=== PATIENT | female | born 1990 | race Caucasian/White ===

== ENCOUNTER 2020-10-04 07:01 | Day surgery (SDC) | payer BC ==
[~2020-10-04] VITALS: Ht 172.7 cm; Wt 82.0 kg
[~2020-10-04 07:01] MED LIST: PRENATAL MULTI1 EAC3 PO
--- NOTE | 2020-10-04 11:30 | NUR ---
10/04/20 1130 Coby Sandoval 1118 PT ARRIVED IN PACU NON RESPONSIVE TO NOXIOUS STIMULI WITH CHIN LIFT HELD BY CEMENT PATCHER. RN HELD CHIN LIFT AND TOOK REPORT. 1123 PT REACTIVE. C/O FEELING COLD. WARM BLANKET AND CHIQUI HUGGER PLACED ON PT.
--- NOTE | 2020-10-04 12:27 | NUR ---
1215: PATIENT BACK IN DAY SURGERY ROOM FROM PACU. PATIENT STATES FEELS NEED TO VOID. PATIENT ASSISTED OOB AND TO BATHROOM. GAIT STEADY. VOIDED ONLY SMALL AMOUNT. SMALL AMOUNT OF BLOODY DRAINAGE. GAIT STEADY BACK TO ROOM. VS CHECKED. WARM BLANKETS GIVEN TO PATIENT. BANDAIDS X 3 ACROSS ABDOMEN. RIGHT LATERAL BANDAID WITH SMALL AMOUNT OF DRAINAGE. UMBILICAL AND LEFT LATERAL BANDAIDS CLEAN, DRY, AND INTACT. IV SITE WNL. SCDs ON. PATIENT GIVEN ICE WATER AND PUDDING. AT BEDSIDE. CALL LIGHT WITHIN REACH.
[2020-10-04] MEDS ORDERED: HYDROCODON-ACE1 EA10 PO (13:03)
[2020-10-04] MEDS ORDERED: IBUPROFEN800 MG PO (13:05)
--- NOTE | 2020-10-04 16:44 | NUR ---
1250: PATIENT STATES PAIN IMPROVED AFTER MORPHINE ADMIN. PATIENT MEDICATED FOR PAIN WITH 1 TAB OF NORCO.
--- NOTE | 2020-10-04 16:45 | NUR ---
1320: PATIENT ASSISTED OOB TO BATHROOM. GAIT STEADY. VOID APPROXIMATELY 600 ML. GAIT STEADY BACK TO ROOM. DISCHARGE INSTRUCTIONS GIVEN TO PATIENT AND . IV DC'D WNL. TIP INTACT. DRESSING APPLIED. 1353: PATIENT GOT DRESSED WITH HELP FROM . PATIENT DISCHARGED TO HOME WITH VIA WHEELCHAIR.
--- NOTE | 2020-10-05 15:35 | PATH ---
[facility] [address] [place], [place] [address] Signed SPECIMEN(S): A FALLOPIAN TUBES, BILATERAL SPECIMEN SOURCE: A. FALLOPIAN TUBES, BILATERAL CLINICAL HISTORY: Hydrosalpinx. Laparoscopic bilateral salpingectomy. FINAL PATHOLOGIC DIAGNOSIS: Fallopian tubes, bilateral, salpingectomy: - Two fallopian tubes with hydrosalpinx. - Endosalpingiosis. - No evidence of malignancy. NAL:cml:C2NR MICROSCOPIC EXAMINATION: Histologic sections of all submitted blocks are examined by light microscopy. These findings, together with the gross examination, support the pathologic diagnosis. GROSS DESCRIPTION: The specimen, labeled "KS," and designated on the requisition "bilateral fallopian tubes," is received in formalin and consists of two red-brown, non-fimbriated, and intact, cystic portions of fallopian tube (5.3 x 5.2 x 2.2 cm and 7.2 x 4.3 x 3.0 cm). One fallopian tube is inked blue arbitrarily. Both segments of fallopian tubes are sectioned to reveal a markedly dilated lumen (ranging in diameter from 0.5-4.3 cm) that contains a clear serous fluid. Clean Out Driller sections are submitted cassettes (A1-A4). AC (under the direct supervision of a pathologist) The Gross Description was prepared using a voice recognition system. The report was reviewed for accuracy; however, sound-alike word errors, addition and/or deletions may occur. If there is any question about this report, please contact Client Services. PERFORMING LABORATORY: The technical component was performed by [email or web address] [address] (Business Process Specialist: Mirtha Barrett MD; CLIA# [id number]). [email or web address] [address] [address] (CLIA# [id number]). PATIENT NAME: JILLIAN TATE GIACOMO PATHOLOGY DATE OF : [birth year] REPORT #: [id number] PHYSICIAN: [facility] PCP: NO PRIMARY CARE PHYSICIAN REPORT IS CONFIDENTIAL AND NOT TO BE RELEASED WITHOUT AUTHORIZATION [address] [place] [address] Signed Diagnostician: Tatyana Stinson MD Pathologist Electronically Signed 10/05/2020 Copies: ~ PATIENT NAME: JILLIAN TATE GIACOMO PATHOLOGY DATE OF : [birth year] REPORT #: [id number] PHYSICIAN: [facility] PCP: NO PRIMARY CARE PHYSICIAN REPORT IS CONFIDENTIAL AND NOT TO BE RELEASED WITHOUT AUTHORIZATION
--- NOTE | 2020-10-13 11:07 | OR ---
[facility] [address] [place], [place] [address] Signed DATE OF OPERATION: 10/04/2020 SURGEON: Cody Crews MD PREOPERATIVE DIAGNOSIS: Bilateral hydrosalpinx. POSTOPERATIVE DIAGNOSES: 1. Bilateral hydrosalpinx. 2. Torsion of the right tube and ovary. PROCEDURE: Bilateral salpingectomy with detorsion of right tube and ovary. HOSPITAL CLINIC ASSISTANT: Dr. Roland ANESTHESIA: General. ESTIMATED BLOOD LOSS: 5 mL. SPECIMEN: Bilateral fallopian tubes. DRAINS: None. PACKING: None. FINDINGS: Cervix normal. Uterus normal size and shape. The anterior cul-de-sac was free of any endometriosis or adhesions. Posterior cul-de-sac was free of any endometriosis or adhesions. The left tube was quite large, dilated with approximately 10 cm hydrosalpinx. The tube was closely adherent to the superior-medial portion of the ovary, otherwise smooth and no other adhesions present. The fimbriated end was completely closed. The right tube and ovary showed torsion or an otherwise normal ovary and enlarged hydrosalpinx, again approximately 10 cm in size on the right, but had Electronically Signed By: CODY CREWS MD 10/13/20 1107 PATIENT NAME: JILLIAN TATE OPERATIVE REPORT DATE OF : [birth year] REPORT #: [id number] PHYSICIAN: CODY CREWS MD PCP: NO PRIMARY CARE PHYSICIAN REPORT IS CONFIDENTIAL AND NOT TO BE RELEASED WITHOUT AUTHORIZATION [facility] [address] [place], [place] [address] Signed no adhesions. 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 PROCEDURE IN DETAIL: The patient was brought to the operating room, placed in supine position. After adequate general anesthesia was obtained, she was placed in the dorsal lithotomy position, and prepped and draped in a sterile fashion. Walsh catheter was placed in the bladder and the weighted speculum placed in the vagina. The anterior lip of the cervix was grasped with an Allis clamp and a small dilator was carefully introduced in the endocervical canal. This would only go in approximately 4 cm and the canal could not be easily identified, so was decided to wait before dilating further, since it was not necessary to have uterine manipulation for removal of the tubes. Instead of the [place] clamp, the [place] uterine manipulator was carefully inserted into the endocervical canal and attached to the Allis clamp. The weighted speculum was removed. Attention was then drawn to the abdomen. A small infraumbilical skin incision was made with a scalpel after injecting the area with 0.25% Marcaine with epinephrine. Subcutaneous tissue was dissected with Metzenbaum scissors and the fascia grasped with hemostats, elevated, nicked with Metzenbaum scissors and extended in transverse fashion. Retention stitches of O Vicryl were placed in the fascia above and below the incision. The abdominal musculature and peritoneum were bluntly entered with finger dissection and S retractor was inserted into the incision. The abdomen was lifted up and the Nas cannula and sleeve then entered the abdomenal cavity under direct visualization. The S retractor was removed, then the balloon of the sleeve filled and the outer sleeve slid down and tightened in place. The retention stitches were attached to the outer sleeve for additional support. The trocar was removed and laparoscope with video attachment entered the abdomen under direct visualization. Carbon dioxide was used as distending medium. On the left side just below the level of the umbilicus and approximately 10 cm lateral to the midline, the abdominal wall was transilluminated to avoid any vessels and then a small skin incision made and of a bladed 5-mm trocar and sleeve entered the abdomen under direct visualization. The trocar was removed. The balloon of the sleeve filled and a blunt grasper inserted. Same procedure was followed out on the right side. With two blunt graspers, the above findings were noted. The LigaSure bipolar forceps were then used. The left fallopian tube was carefully inspected. It was decided the best way to remove the tube would be to cut across the isthmic portion of the tube, and then dissected back through the mesosalpinx towards the ovary. The tube was cauterized in several places using the Shahrzad bipolar forceps, and then cut in the mesosalpinx just under the tube, cauterized and cut back towards the distal and care was taken to avoid the uteroovarian ligament and the infundibulopelvic Electronically Signed By: CODY CREWS MD 10/13/20 1107 PATIENT NAME: JILLIAN TATE OPERATIVE REPORT DATE OF : [birth year] REPORT #: [id number] PHYSICIAN: CODY CREWS MD PCP: NO PRIMARY CARE PHYSICIAN REPORT IS CONFIDENTIAL AND NOT TO BE RELEASED WITHOUT AUTHORIZATION [address] [address] Signed ligament. The tube was closely adherent to the surface of the ovary, so the tube was gently pulled medially and the bipolar forceps used to cauterize the area between the tube and the ovary until the entire tube was free. This tube was then placed in the posterior cul-de-sac. The ovarian surface was raw in a fairly large area, so the raw edges of the ovarian cortex were carefully cauterized and good hemostasis was noted. The right side was then observed and noted to be torsed, so the tube and ovary were de-torsed and then the tube was again noted to be dilated, so again the bipolar [place] forceps were used to cauterize across the proximal isthmic portion of the tube and the mesosalpinx cauterized and cut along the length of the tube towards the distal end, again care was taken to make sure that the infundibulopelvic ligament and utero-ovarian ligament were avoided. This side, the tube was not adherent to the ovary, so the mesosalpinx could be taken all the way down until the tube was completely free. A 5 mm laparoscope was then placed in the lateral port and an Endopouch placed through the infraumbilical port and the right fallopian tube placed in the Endopouch, and the pouch brought out through the infraumbilical incision after removing the trocar and sleeve, making an 18-gauge needle with a large syringe was then used to deflate the hydrosalpinx, which was filled with a clear straw colored fluid as the tube was the deflated, the bag was then easy to deliver out of the abdomen without any spillage. The trocar and sleeve were placed back in and the balloon filled, the trocar removed, and second Endopouch was used and the left fallopian tube placed in the bag and removed in the same fashion again without any spillage. The midline trocar and sleeve were replaced again. The 10 mm scope placed back and the entire pelvis irrigated, suctioned, examined noted to have good hemostasis. Tisseel was sprayed over the raw areas to further help with hemostasis, and again the entire area showed good hemostasis. All instruments were removed. The gas allowed to escape and the final sleeve removed. The infraumbilical fascial incision was closed using a running stitch of 0-Vicryl suture. The retention stitches were tied together for further support. There was small amount of bleeding in the right port, this was controlled with cautery and the remaining Tisseel when this was observed for several minutes and no additional bleeding was noted, so the three skin incisions were closed using subcuticular stitches of 4-0 Vicryl. The [place] cannula and Allis clamp were removed and the cervix noted to have good hemostasis. The patient tolerated the procedure well and went to the recovery room in good condition. The sponge, needle, and instrument counts were correct at the end of the procedure. Cody Crews MD Electronically Signed By: CODY CREWS MD 10/13/20 1107 PATIENT NAME: JILLIAN TATE OPERATIVE REPORT DATE OF : [birth year] REPORT #: [id number] PHYSICIAN: CODY CREWS MD PCP: NO PRIMARY CARE PHYSICIAN REPORT IS CONFIDENTIAL AND NOT TO BE RELEASED WITHOUT AUTHORIZATION [facility] [address] [place] [address] Signed [facility]/MODL /[id number] Copies: ~ Electronically Signed By: CODY CREWS MD 10/13/20 1107 PATIENT NAME: JILLIAN TATE GIACOMO OPERATIVE REPORT DATE OF : [birth year] REPORT #: [id number] PHYSICIAN: CODY CREWS MD PCP: NO PRIMARY CARE PHYSICIAN REPORT IS CONFIDENTIAL AND NOT TO BE RELEASED WITHOUT AUTHORIZATION
== END 2020-10-04 13:53 | disposition home or self-care (01) ==
LOC: DS 07:01 → OPS 07:01 → DS 08:30 → OPS 13:53
PROVIDERS: ATTEND General Practice
PROC: 0UT74ZZ Resection of Bilateral Fallopian Tubes, Percutaneous Endoscopic Approach (ICD-10-PCS; principal; 2020-10-04 08:30)
DX: N70.11 Chronic salpingitis (principal); N83.53 Torsion of ovary, ovarian pedicle and fallopian tube; N94.89 Other specified conditions associated with female genital organs and menstrual cycle; J45.909 Unspecified asthma, uncomplicated
CPT/HCPCS: 00840; J0330; J0690; J1100; J1885; J2001; J2250; J2270; J2405; J2704; J7121

== ENCOUNTER 2022-10-05 00:02 | Inpatient (IN) | payer BC ==
[~2022-10-05] VITALS: Ht 172.7 cm; Wt 98.9 kg
[~2022-10-05 00:02] MED LIST changes: +HYDROCODON-ACE1 EA10 PO; +IBUPROFEN800 MG PO
[2022-10-05 01:23] VITALS: BP 145/89
--- NOTE | 2022-10-05 13:23 | PR ---
[facility] [address] [facility] [place], [place] [address] Signed Progress Notes IP Datetime Report Generated by CPN: 10/05/2022 13:23 PROGRESS NOTES: [id number] Impression: Reassuring Heart Rate Plan: Continue Present Management Other Plans: Labetalol 20mg IV VITAL SIGNS: [id number] Vital Signs: Reviewed VS Notable Details: severe-range BP EXAM: [id number] Dilatation: 1.0 Effacement: 80 Station: -2 MEMBRANES: [id number] Membranes Status: Intact Comments: Progressing well with cervical ripening. LY improved with tylenol, denies vision changes. Adequate UOP. Labs reviewed: Mg 4.9 FETUS A: [id number] Decelerations: None FHR Category: Category I Presentation: Vertex Comments on Fetus A: no evidence of acidemia FETUS B: [id number] Signing Physician: Sohail Roland DO Copies: ~ *Electronically Signed* 10/05/22 1323 SOHAIL ROLAND DO PATIENT NAME: JILLIAN TATE GIACOMO PROGRESS NOTE DATE OF : [birth year] PHYSICIAN: SOHAIL ROLAND DO RPT #: [id number] REPORT IS CONFIDENTIAL AND NOT TO BE RELEASED WITHOUT AUTHORIZATION
--- NOTE | 2022-10-05 16:14 | PR ---
[facility] [address] [facility] [place], [place] [address] Signed Progress Notes IP Datetime Report Generated by CPN: 10/05/2022 16:14 PROGRESS NOTES: [id number] Impression: Reassuring Heart Rate Plan: Continue Present Management Other Plans: Labetalol 20mg IV VITAL SIGNS: [id number] Vital Signs: Reviewed VS Notable Details: severe-range BP EXAM: [id number] Dilatation: 1.0 Effacement: 80 Station: -2 MEMBRANES: [id number] Membranes Status: Intact Comments: No further progress. C/o headache, would like more tylenol. Next labs at 1700. Discussed options: cytotec, cook catheter, AROM. Agreed to do one more cytotec, reassess, then if unchanged place cook catheter overnight. FETUS A: [id number] Decelerations: None FHR Category: Category I Presentation: Vertex Comments on Fetus A: no evidence of acidemia FETUS B: [id number] Signing Physician: Sohail Roland DO Copies: ~ *Electronically Signed* 10/05/22 1614 SOHAIL ROLAND DO PATIENT NAME: SKILLMAN,JILLIAN GIACOMO PROGRESS NOTE DATE OF : [birth year] PHYSICIAN: SOHAIL ROLAND DO RPT #: [id number] REPORT IS CONFIDENTIAL AND NOT TO BE RELEASED WITHOUT AUTHORIZATION
--- NOTE | 2022-10-05 19:22 | PR ---
[facility] [address] [place], [place] [address] Signed Progress Notes IP Datetime Report Generated by CPN: 10/05/2022 19:22 PROGRESS NOTES: [id number] Impression: Reassuring Heart Rate; Gest. HTN/PreEclampsia/Eclampsia Other Procedures: Cook catheter Plan: Continue Present Management Other Plans: Labetalol 20mg IV VITAL SIGNS: [id number] Vital Signs: Reviewed VS Notable Details: severe-range BP EXAM: [id number] Dilatation: 1.0 Effacement: 80 Station: -2 MEMBRANES: [id number] Membranes Status: Intact Comments: Reviewed unchanged cervical check with pt and FOB. Both are in agreement to proceed with cook catheter, as previously discussed. Cook placed without difficulty, 40mL sterile saline in each balloon, with plan to add 20mL each balloon every 20 minutes until total of 80mL in each balloon. Continue Mary Lou for GBS prophylaxis Add labetalol 100mg po q8h for BP control PreE labs reviewed, stable. Mg 5.7, continue at 2g/ hr FETUS A: [id number] Decelerations: None FHR Category: Category I Presentation: Vertex Comments on Fetus A: no evidence of acidemia FETUS B: [id number] Signing Physician: Sohail Roland DO Copies: ~ *Electronically Signed* 10/05/221921 SOHAIL ROLAND DO PATIENT NAME: JILLIAN TATE GIACOMO PROGRESS NOTE DATE OF : [birth year] PHYSICIAN: SOHAIL ROLAND DO [facility] #: [id number] REPORT IS CONFIDENTIAL AND NOT TO BE RELEASED WITHOUT AUTHORIZATION
--- NOTE | 2022-10-05 20:54 | PR ---
[facility] [address] [place], [place] [address] Signed Progress Notes IP Datetime Report Generated by GIUSEPPE: 10/05/2022 20:54 PROGRESS NOTES: [id number] Impression: Reassuring Heart Rate; Gest. HTN/PreEclampsia/Eclampsia Other Procedures: Cook catheter Plan: Continue Present Management Other Plans: IV fluid bolus, maternal repositioning VITAL SIGNS: [id number] Vital Signs: Reviewed VS Notable Details: severe-range BP EXAM: [id number] Dilatation: 1.0 Effacement: 80 Station: -2 MEMBRANES: [id number] Membranes Status: Intact Comments: Pt seen and evaluated. Pt w/ sustained severe range BPs after vomiting partially undigested labetolol given PO. BPs improved w/ Labetolol 20mg IV per protocol. Labetolol 200mg PO also administered. Reviewed heart tracing. Indeterminate baseline. IV fluid bolus given and maternal repositioning. Apparent acceleration w/ stimulation. Variability generally moderate w/ periods of minimal. Will optimize materal positioning and continue to monitor closely. FETUS A: [id number] Decelerations: None FHR Category: Category I Presentation: Vertex Comments on Fetus A: no evidence of acidemia FETUS B: [id number] Signing Physician: Jose Desai DO Copies: ~ *Electronically Signed* 10/05/222053 JOSE DESAI (VANCE) DO PATIENT NAME: JILLIAN TATE GIACOMO PROGRESS NOTE DATE OF : [birth year] PHYSICIAN: JOSE DESAI (JD) DO RPT #: [id number] REPORT IS CONFIDENTIAL AND NOT TO BE RELEASED WITHOUT AUTHORIZATION
--- NOTE | 2022-10-05 22:56 | PR ---
[facility] [address] [facility] [place], [place] [address] Signed Progress Notes IP Datetime Report Generated by CPN: 10/05/2022 22:56 PROGRESS NOTES: [id number] Impression: Reassuring Heart Rate; Gest. HTN/PreEclampsia/Eclampsia Procedures: Sterile Vag Exam Other Procedures: Cook catheter Plan: Continue Present Management Other Plans: IV fluid bolus, maternal repositioning VITAL SIGNS: [id number] Vital Signs: Reviewed VS Notable Details: severe-range BP EXAM: [id number] Dilatation: 3.0 Effacement: 80 Station: -2 MEMBRANES: [id number] Membranes Status: Intact Comments: Repositioned to try and trace contractions better. Cervical check around cook catheter. Next labs due at 11pm. Continue close surveillance. FETUS A: [id number] Decelerations: None FHR Category: Category I Presentation: Vertex Comments on Fetus A: no evidence of acidemia FETUS B: [id number] Signing Physician: Sohail Roland DO Copies: ~ *Electronically Signed* 10/05/22 2256 SOHAIL ROLAND DO PATIENT NAME: JILLIAN TATE PROGRESS NOTE DATE OF : [birth year] PHYSICIAN: SOHAIL ROLAND DO [facility] #: [id number] REPORT IS CONFIDENTIAL AND NOT TO BE RELEASED WITHOUT AUTHORIZATION
--- NOTE | 2022-10-06 07:36 | PR ---
[facility] [address] [facility] [place], [place] [address] Signed Progress Notes IP Datetime Report Generated by CPN: 10/06/2022 07:36 PROGRESS NOTES: [id number] Impression: Reassuring Heart Rate Procedures: Sterile Vag Exam Other Procedures: Removal of cook catheter Plan: Continue Present Management Other Plans: Start low-dose pitocin Informed Consent Obtain: Risks, Benefits and Alternatives Discussed VITAL SIGNS: [id number] Vital Signs: Reviewed VS Notable Details: severe-range BP EXAM: [id number] Dilatation: 3.0 Effacement: 90 Station: -2 MEMBRANES: [id number] Membranes Status: Intact Comments: Cook catheter removed. Cervix 3/90, head ballotable. Discussed I am not comfortable performing amniotomy at this time. Reviewed options, elected to proceed with low-dose pitocin. FETUS A: [id number] Decelerations: None FHR Category: Category I Presentation: Vertex Comments on Fetus A: no evidence of acidemia FETUS B: [id number] Signing Physician: Sohail Roland DO Copies: ~ *Electronically Signed* 10/06/22 0736 SOHAIL ROLAND DO PATIENT NAME: JILLIAN TATE PROGRESS NOTE DATE OF : [birth year] PHYSICIAN: SOHAIL ROLAND DO RPT #: [id number] REPORT IS CONFIDENTIAL AND NOT TO BE RELEASED WITHOUT AUTHORIZATION
--- NOTE | 2022-10-06 14:52 | PR ---
[facility] [address] [place], [place] [address] Signed Progress Notes IP Datetime Report Generated by GIUSEPPE: 10/06/2022 14:52 PROGRESS NOTES: [id number] Impression: Non-reassuring Heart Rate Procedures: Artificial ROM Other Procedures: Removal of cook catheter Plan: Deliver- Section Other Plans: Start low-dose pitocin Informed Consent Obtain: Section Delivery; Risks, Benefits and Alternatives Discussed VITAL SIGNS: U3578048 Vital Signs: Reviewed VS Notable Details: severe-range BP EXAM: [id number] Dilatation: 5.0 Effacement: 90 Station: -2 MEMBRANES: [id number] Membranes Status: Intact ROM Note: Can feel a bag of fluid. Comments: Pt not feeling any pain with contractions. No change in cervix on exam. At this point, pt and FOB considering primary elective . Agreed to try amniotomy; if poor or questionable tolerance then . AROM performed without difficulty and attempted to place IUPC. Slight cervical change after AROM to 5cm. Significant resistance was encountered while trying to place IUPC, unable to place. Baby then had three consecutive deep variable decelerations audibly down to the 60s. Pitocin discontinued, mother repositioned, and IV fluid bolus started. Pt strongly desires avoiding crash delivery. Risks, benefits, alternatives to again reviewed. Plan to proceed with delivery. FETUS A: [id number] Decelerations: None FHR Category: Category I Presentation: Vertex Comments on Fetus A: no evidence of acidemia FETUS B: [id number] Signing Physician: Sohail Roland DO *Electronically Signed* 10/06/22 1452 SOHAIL ROLAND DO PATIENT NAME: JILLIAN TATE GIACOMO PROGRESS NOTE DATE OF : [birth year] PHYSICIAN: SOHAIL ROLAND DO RPT #: [id number] REPORT IS CONFIDENTIAL AND NOT TO BE RELEASED WITHOUT AUTHORIZATION
--- NOTE | 2022-10-06 16:31 | NUR ---
10/06/22 1631 Gino,Sona 1606 PT ARRIVED TO [facility] ROOM 105, AT BEDSIDE AND [facility] IN ROOM. PT DENIES PAIN AND NAUSEA. HOB INCREASED SLIGHTLY. IV INFUSING LR AND SITE WNL, LEFT HAND. 1620 BABY TO CHEST WITH [facility] RN. FUNDAL EDUCATION GIVEN.
--- NOTE | 2022-10-07 13:10 | PR ---
[facility] [address] [facility] [place], [place] [address] Signed PP Progress Notes Datetime Report Generated by CPN: 10/07/2022 13:10 SUBJECTIVE: [id number] Pain: Within Normal Limits Nausea/Vomiting: Denies Flatus: Yes Bowel Movement: No Vital Signs: [id number] Vital Signs: Reviewed; Within Normal Limits Notable Details: Excellent urine output EXAM: Ongoing Cardiovascular: Normal Respiratory: Normal Abdomen/Uterus: Normal Lochia: Normal CVA Tenderness: Normal Extremities: Normal Incision: Normal Progress: Normal Exam Comments: Fundus firm U-2 nontender. Incision not examined (pt ). 3+ pitting edema bilaterally IMPRESSION/PLAN/PROCEDURES: [id number] Impression: Normal Progression Other Impression: Preeclampsia w/ severe features improved Progress Notes: Pt seen and examined. Doing well. No LY, RUQ pain, or visual changes. Reviewed labs and urine outpout. Recommend d/c mag now. Repeat labs at 6pm. Reviewed w/ pt. All questions answered Signing Physician: Jose Desai DO Copies: ~ *Electronically Signed* 10/07/22 6342 JOSE DESAI (VANCE) DO PATIENT NAME: JILLIAN TATE PROGRESS NOTE DATE OF : [birth year] PHYSICIAN: JOSE DESAI) DO RPT #: [id number] REPORT IS CONFIDENTIAL AND NOT TO BE RELEASED WITHOUT AUTHORIZATION
--- NOTE | 2022-10-08 09:02 | PR ---
[facility] [address] [place], [place] [address] Signed PP Progress Notes Datetime Report Generated by GIUSEPPE: 10/08/2022 09:01 SUBJECTIVE: [id number] Pain: Within Normal Limits Nausea/Vomiting: Denies Flatus: Yes Bowel Movement: No Vital Signs: [id number] Vital Signs: Reviewed; Within Normal Limits Notable Details: Excellent urine output EXAM: Ongoing Cardiovascular: Normal Respiratory: Normal Abdomen/Uterus: Normal Lochia: Normal Breasts: Normal CVA Tenderness: Normal Extremities: Normal Incision: Normal Progress: Normal Exam Comments: NAD, sitting up in bed baby RRR No dyspnea/ retractions Abd SNTND Incision: not examined while mother , denies complaints Ext: hand swelling improving, 3+ BLLE edema extending to thighs IMPRESSION/PLAN/PROCEDURES: [id number] Impression: Normal Progression; Induced Hypertension Other Impression: Preeclampsia w/ severe features improved Plan: Continue Present Management Progress Notes: 32 yo [id number] POD#2 s/p PLTCS for NRFHT -Pt seen and examined. Progressing well postop, swelling persists but excellent UOP and BP normotensive with occasional non-severe elevated BP. Ambulating, voiding, tolerating regular diet. +flatus. Pain well-controlled with orals. and pumping, syringe feeding baby as needed -Anticipate DC to home tomorrow if mother and baby continue to progress well and no severe BP. Discussed consideration of oral antihypertensive if BP elevate -Continue support Signing Physician: Sohail Roland DO *Electronically Signed* 10/08/22 0901 SOHAIL ROLAND DO PATIENT NAME: JILLIAN TATE GIACOMO PROGRESS NOTE DATE OF : [birth year] PHYSICIAN: SOHAIL ROLAND DO RPT #: [id number] REPORT IS CONFIDENTIAL AND NOT TO BE RELEASED WITHOUT AUTHORIZATION [address] [place] [address] Signed Copies: ~ *Electronically Signed* 10/08/22 0901 SOHAIL ROLAND DO PATIENT NAME: JILLIAN TATE GIACOMO PROGRESS NOTE DATE OF : [birth year] PHYSICIAN: SOHAIL ROLAND DO RPT #: [id number] REPORT IS CONFIDENTIAL AND NOT TO BE RELEASED WITHOUT AUTHORIZATION
--- NOTE | 2022-10-09 09:09 | PR ---
[facility] [address] [place], [place] [address] Signed PP Progress Notes Datetime Report Generated by CPN: 10/09/2022 09:09 SUBJECTIVE: [id number] Pain: Within Normal Limits Nausea/Vomiting: Denies Flatus: Yes Bowel Movement: Yes Vital Signs: [id number] Vital Signs: Reviewed Notable Details: severe range BP EXAM: Ongoing Cardiovascular: Normal Respiratory: Normal Abdomen/Uterus: Normal Lochia: Normal Breasts: Normal CVA Tenderness: Normal Extremities: Normal Incision: Normal Progress: Normal Exam Comments: Tearful Abd: SNTND, FFBU Incision: c/d/i, mariel in place, no redness/ erythema Ext: 3+ BLLE pitting edema extending to thighs Patellar DTRs: unable to elicit reflexes, no clonus IMPRESSION/PLAN/PROCEDURES: [id number] Impression: Induced Hypertension Other Impression: Preeclampsia w/ severe features improved Plan: Continue Present Management Other Plans: Resume IV MgSO4 therapy Progress Notes: Pt is a 32 yo POD#3 s/p PLTCS -progressing well postop Preeclampsia with severe features: LFTs elevating, Creatinine elevating, new onset severe-range BP despite labetalol 100mg po q8h Anemia: hgb down to 7.9 this am, concern for dilutional component. Discussed plan for IV iron infusion after completion of treatment with IV magnesium. *Electronically Signed* 10/09/22 0909 FANNY ROLAND DO PATIENT NAME: JILLIAN TATE PROGRESS NOTE DATE OF : 91 PHYSICIAN: FANNY ROLAND DO RPT #: [id number] REPORT IS CONFIDENTIAL AND NOT TO BE RELEASED WITHOUT AUTHORIZATION [facility] [address] [place], [place] [address] Signed Plan: Resume IV magnesium therapy wityh 4g bolus then 1.5g/ hr. Labs q6h, strict output monitoring. Signing Physician: Fanny Roland DO Copies: ~ *Electronically Signed* 10/09/22908 FANNY ROLAND DO PATIENT NAME: JILLIAN TATE PROGRESS NOTE DATE OF : [birth year] PHYSICIAN: FANNY ROLAND DO RPT #: [id number] REPORT IS CONFIDENTIAL AND NOT TO BE RELEASED WITHOUT AUTHORIZATION
--- NOTE | 2022-10-10 10:09 | PR ---
[facility] [address] [place], [place] [address] Signed PP Progress Notes Datetime Report Generated by CPN: 10/10/2022 10:09 SUBJECTIVE: [id number] Pain: Within Normal Limits Nausea/Vomiting: Denies Flatus: Yes Bowel Movement: Yes Vital Signs: [id number] Vital Signs: Reviewed Notable Details: BP still slightly elevated Hgb/Hct = 8.3/24.5 EXAM: Ongoing Cardiovascular: Normal Respiratory: Normal Abdomen/Uterus: Normal Lochia: Normal Breasts: Normal CVA Tenderness: Normal Extremities: Normal Incision: Normal Progress: Normal Exam Comments: Tearful Abd: SNTND, FFBU Incision: c/d/i, mariel in place, no redness/ erythema Ext: 3+ BLLE pitting edema extending to thighs Patellar DTRs: unable to elicit reflexes, no clonus IMPRESSION/PLAN/PROCEDURES: [id number] Impression: Normal Progression; Induced Hypertension Other Impression: PP Anemia Plan: Continue Present Management Other Plans: D/C MagSO4 Other Procedures: IV Iron infusion Progress Notes: Feeling much better, without complaint. Continue Labetalol after stopping MagSO4 Continue watching vitals q 3 hrs, labs q 12 hrs Hopefully home tomorrow. Signing Physician: Cody Watson MD *Electronically Signed* 10/10/22 1009 CODY WATSON MD PATIENT NAME: JILLIAN TATE PROGRESS NOTE DATE OF : 91 PHYSICIAN: CODY WATSON MD RPT #: [id number] REPORT IS CONFIDENTIAL AND NOT TO BE RELEASED WITHOUT AUTHORIZATION [facility] [address] [place], [place] [address] Signed Copies: ~ *Electronically Signed* 10/10/22 1009 CODY WATSON MD PATIENT NAME: JILLIAN TATE GIACOMO PROGRESS NOTE DATE OF : [birth year] PHYSICIAN: CODY WATSON MD RPT #: [id number] REPORT IS CONFIDENTIAL AND NOT TO BE RELEASED WITHOUT AUTHORIZATION
--- NOTE | 2022-10-11 13:10 | PR ---
[facility] [address] [place], [place] [address] Signed PP Progress Notes Datetime Report Generated by CPN: 10/11/2022 13:10 SUBJECTIVE: [id number] Pain: Within Normal Limits Nausea/Vomiting: Denies Flatus: Yes Bowel Movement: Yes Vital Signs: [id number] Vital Signs: Reviewed Notable Details: no sustained severe BP EXAM: Ongoing Cardiovascular: Normal Respiratory: Normal Abdomen/Uterus: Normal Lochia: Normal Breasts: Normal CVA Tenderness: Normal Extremities: Normal Incision: Normal Progress: Normal Exam Comments: Tearful Abd: SNTND, FFBU Incision: c/d/i, mariel in place, no redness/ erythema Ext: 3+ BLLE pitting edema extending to thighs Patellar DTRs: unable to elicit reflexes, no clonus IMPRESSION/PLAN/PROCEDURES: [id number] Impression: Normal Progression Other Impression: PP Anemia Plan: Continue Present Management; Discharge Other Plans: D/C MagSO4 Other Procedures: IV Iron infusion Progress Notes: POD#5 s/p PLTCS PreE with severe BP: will add in Procardia 30XL. Pt strongly desires discharge STEPHANIE and is planning to get a blood pressure cuff on the way home. Reviewed labs, Cr down to 0.85 and AST/ ALT within normal limits. Plt >200. Edema significantly improved. Plan: recheck BP after procardia, plan recheck BP and if stable then DC to home on Procardia 30XL daily and labetalol 300mg po TID. Signing Physician: Sohail Roland DO *Electronically Signed* 10/11/22 1310 SOHAIL ROLAND DO PATIENT NAME: JILLIAN TATE GIACOMO PROGRESS NOTE DATE OF : [birth year] PHYSICIAN: SOHAIL ROLAND DO RPT #: [id number] REPORT IS CONFIDENTIAL AND NOT TO BE RELEASED WITHOUT AUTHORIZATION [address] [place] [address] Signed Copies: ~ *Electronically Signed* 10/11/22 1310 SOHAIL ROLAND DO PATIENT NAME: JILLIAN TATE GIACOMO PROGRESS NOTE DATE OF : [birth year] PHYSICIAN: SOHAIL ROLAND DO RPT #: [id number] REPORT IS CONFIDENTIAL AND NOT TO BE RELEASED WITHOUT AUTHORIZATION
[2022-10-11 13:31] VITALS: BP 130/83
--- NOTE | 2022-10-12 11:46 | PATH ---
[facility] [address] [place], [place] [address] Signed SPECIMEN(S): A PLACENTA SPECIMEN SOURCE: A. PLACENTA CLINICAL HISTORY: . Induction. Possible placental abruption, pre-eclampsia with severe features. FINAL PATHOLOGIC DIAGNOSIS: Placenta: - 461 gm placenta with three-vessel umbilical cord. - Negative for significant chorioamnionitis or funisitis. - Focal placental villous and perivillous fibrin deposition and calcification. - Negative for significant placental disc infarction. - Focal partial thickness placental disc infarction (<10%). JVR:[facility]:C2NR MICROSCOPIC EXAMINATION: Histologic sections of all submitted blocks are examined by light microscopy. These findings, together with the gross examination, support the pathologic diagnosis. GROSS DESCRIPTION: The specimen, labeled and designated "Tami Tate, " and designated on the requisition "placenta," is received fresh and placed in formalin and consists of a scott discoid placenta with the following parameters: Umbilical cord: Insertion paramarginal, measurement 15.6 x 1.4 cm; trivascular. Cord coiling index (per 10 cm): Cannot be grossly assessed. Lesions: Not grossly identified. Membranes: Insertion site: Marginal, pink-graham and translucent with a loosely adherent blood clot. Intact. Other: Not grossly identified. Chorionic Plate: Normal radiating vascular pattern, blue-purple and shiny, with a subamnionic hemorrhage that involves approximately 25% of the surface. Lesions: Not grossly identified. Other: Not grossly identified. Maternal Surface: Normal cotyledons, focally disrupted. Lesions: Not grossly identified. Measurement: 17.5 x 16.8 x 2.6 cm. 461 g PATIENT NAME: JILLIAN TATE PATHOLOGY DATE OF : [birth year] REPORT #: [id number] PHYSICIAN: [facility] PCP: NO PRIMARY CARE PHYSICIAN REPORT IS CONFIDENTIAL AND NOT TO BE RELEASED WITHOUT AUTHORIZATION [facility] [address] [place], [place] [address] Signed Cut Surface: Maroon and spongy. Lesions: One area of white-graham firm consolidation, that is 1.4 cm in greatest dimension. This area involves less than 10% of placental parenchyma. Basal plate fibrin 0.1 cm in thickness. Other Findings: No firmly adherent blood clot is grossly identified. No compression of the placental disc is grossly identified. Cassette Summary: (A1) Membranes and umbilical cord. (A2) Area of consolidation. (A3) Area of subamnionic hemorrhage. (A4) Placenta parenchyma. FB (under the direct supervision of a pathologist) The Gross Description was prepared using a voice recognition system. The report was reviewed for accuracy; however, sound-alike word errors, addition and/or deletions may occur. If there is any question about this report, please contact Client Services. PERFORMING LABORATORY: The technical component was performed by [facility], [address] [place] [id number] (CLIA# [id number]). Professional interpretation was performed by [facility], [address] [place] [id number] (CLIA#: [id number]). Diagnostician: Zeeshan Mullins MD Pathologist Electronically Signed 10/12/2022 Copies: ~ PATIENT NAME: JILLIAN TATE GIACOMO PATHOLOGY DATE OF : [birth year] REPORT #: [id number] PHYSICIAN: [facility] PATHOLOGY PCP: NO PRIMARY CARE PHYSICIAN REPORT IS CONFIDENTIAL AND NOT TO BE RELEASED WITHOUT AUTHORIZATION
--- NOTE | 2022-10-15 07:44 | OR ---
[address] [place], [place] [address] Signed DATE OF OPERATION: 10/06/2022 SURGEON: Sohail Roland DO PROCEDURE: Electronically Signed By: SOHAIL ROLAND DO 10/15/22 0744 PATIENT NAME: JILLIAN TATE OPERATIVE REPORT DATE OF : [birth year] REPORT #: [id number] PHYSICIAN: SOHAIL ROLAND DO PCP: NO PRIMARY CARE PHYSICIAN REPORT IS CONFIDENTIAL AND NOT TO BE RELEASED WITHOUT AUTHORIZATION [address] [place], [place] [address] Signed Primary low-transverse section. BOX GLUER: Elvin Desai DO. PREOPERATIVE DIAGNOSES: Non-reassuring heart tones, preeclampsia with severe features. In vitro fertilization . POSTOPERATIVE DIAGNOSES: Term , delivered. Preeclampsia severe features, concealed placental abruption. In vitro fertilization . ANESTHESIA: Spinal. BLOOD LOSS: 750 mL. COMPLICATIONS: None. INDICATIONS: The patient is a 32-year-old G4, P-0-0-3-0, who was admitted at 37 weeks gestation for medical induction of labor for preeclampsia. Shortly after admission, she developed severe range blood pressures, was started on IV magnesium and labetalol for management of hypertension. She received Cytotec for induction of labor. A Cook catheter was placed overnight. Intermittently, she had a category 2 heart tracings, which tended to resolve with maternal repositioning. After removal of the Cook catheter low-dose Pitocin was started. The heart rate tracing varying between category 1 and category 2 with non-sustained episodes of recurrent late decelerations. Once head was well applied, amniotomy was performed yielding moderate amount of clear fluid. IUPC placement was attempted but failed due to unusual resistance. Three consecutive deep variable decelerations to the 60s and decision was made to proceed with primary delivery for non-reassuring status. Pitocin was discontinued. The patient was repositioned and IV fluid bolus was started. Risks, benefits, and alternatives to delivery were discussed and she elected to proceed. PROCEDURE IN DETAIL: The patient was taken back to the operating room where spinal anesthesia was placed by Electronically Signed By: SOHAIL ROLAND DO 10/15/22 0744 PATIENT NAME: JILLIAN TATE OPERATIVE REPORT DATE OF : [birth year] REPORT #: [id number] PHYSICIAN: SOHAIL ROLAND DO PCP: NO PRIMARY CARE PHYSICIAN REPORT IS CONFIDENTIAL AND NOT TO BE RELEASED WITHOUT AUTHORIZATION [address] [address] Signed TACK CUTTER and she was positioned supine with a leftward tilt. She was prepped and draped including a vaginal prep in normal sterile fashion. Adequate spinal anesthesia was confirmed. A Pfannenstiel skin incision was made with a scalpel, carried down to the underlying layer of fascia which was nicked in midline and extended laterally with Garrison scissors. Inferior margin of fascia was grasped and elevated with Angelia clamps. Underlying rectus muscle was dissected off bluntly and sharply with Garrison scissors. Inferior margin of fascia was released and superior margin was grasped, elevated, and underlying rectus muscle was dissected off bluntly and sharply with Garrison scissors. Peritoneum was entered bluntly and extended with lateral traction. Aleks retractor was placed and hysterotomy was made with a scalpel. Uterus was entered digitally bluntly with spontaneous return of dark older appearing blood clot. Baby's head was easily elevated to the level of hysterotomy delivered through with fundal pressure from the assist. Anterior followed by posterior shoulder easily delivered followed by the remainder of body. Baby gave a strong spontaneous cry as he was being delivered, and appeared vigorous. Cord was doubly clamped and cut and baby was handed to waiting nursery team including senior games technician. Segment of cord was collected for cord gases. Cord blood was collected for type and Aurelia. Placenta easily manually delivered, practically spontaneously, and noted to have area of clot consistent with concealed placental abruption. Due to this finding as well as the patient's preeclampsia with severe features placenta was sent to pathology for further analysis. Additionally, she was given 1 g TXA IV by Anesthesia and uterus was cleared of clots and debris. Stay suture of 0 Monocryl was placed at the right apex. Hysterotomy was closed in a double-layer closure first with 0 Monocryl in a running locked fashion, second with 0 Monocryl in an imbricating manner with resulting hemostasis. Pelvis was suction irrigated with warm sterile saline and was again noted to be hemostatic. Uterus was inspected revealing normal bilateral ovaries and surgically absent tubes consistent with patient's history of bilateral salpingectomy. Cul-de-sac was cleared of clots. Peritoneum was closed with 2-0 Vicryl in a running fashion. Rectus muscle was reapproximated at midline with 0 Vicryl in simple interrupted fashion x3. This was suction irrigated with sterile saline and was noted to be hemostatic. Fascia was closed with 0 Vicryl in a running fashion working first from right apex to midline and left apex to midline meeting in the middle. Subcutaneous layer was inspected. Perforating vessels were cauterized with Bovie cautery and subcutaneous layer was suction irrigated with warm sterile saline. Subcutaneous layer was reapproximated with 3-0 Vicryl in a running fashion and skin was closed with mariel. Uterus was then Crede'd with significant return of clot bringing estimated blood loss up to a total of 750 mL. Due to prolonged induction and IV magnesium therapy both increasing risk for Electronically Signed By: SOHAIL ROLAND DO 10/15/22 0744 PATIENT NAME: JILLIAN TATE OPERATIVE REPORT DATE OF : [birth year] REPORT #: [id number] PHYSICIAN: SOHAIL ROLAND DO PCP: NO PRIMARY CARE PHYSICIAN REPORT IS CONFIDENTIAL AND NOT TO BE RELEASED WITHOUT AUTHORIZATION [facility] [address] [place], [place] [address] Signed hemorrhage, decision was made to place 1000 mcg of Cytotec suppository rectally. This was placed without difficulty. Instrument and sponge counts were correct and patient remained in the OR for placement of TAP blocks by Anesthesia while father and baby were taken to recovery room together in stable with baby in excellent condition. FINDINGS: Normal-appearing bilateral ovaries. Placenta with clot as well as clot noted spontaneously upon entry to the uterus. Baby is a viable term male delivered in left occiput anterior position, weighing 6 pounds 8 ounces with Apgars of 9 and 9. Sohail Roland DO EMZ/MODL /[id number] Copies: ~ Electronically Signed By: SOHAIL ROLAND DO 10/15/22 0744 PATIENT NAME: JILLIAN TATE GIACOMO OPERATIVE REPORT DATE OF : [birth year] REPORT #: [id number] PHYSICIAN: SOHAIL ROLAND DO PCP: NO PRIMARY CARE PHYSICIAN REPORT IS CONFIDENTIAL AND NOT TO BE RELEASED WITHOUT AUTHORIZATION
== END 2022-10-11 16:21 | disposition home or self-care (01) | DRG 788 ==
LOC: FBC 00:02
PROVIDERS: ADMIT Obstetrics & Gynecology; ATTEND Obstetrics & Gynecology
PROC: 0U7C7ZZ Dilation of Cervix, Via Natural or Artificial Opening (ICD-10-PCS; 2022-10-05)
PROC: 3E0P7VZ Introduction of Hormone into Female Reproductive, Via Natural or Artificial Opening (ICD-10-PCS; 2022-10-05)
PROC: 3E033VJ Introduction of Other Hormone into Peripheral Vein, Percutaneous Approach (ICD-10-PCS; 2022-10-06)
PROC: 10D00Z1 Extraction of Products of Conception, Low, Open Approach (ICD-10-PCS; principal; 2022-10-06 15:00)
DX: O14.14 Severe pre-eclampsia complicating childbirth (principal); O45.93 Premature separation of placenta, unspecified, third trimester; O76 Abnormality in fetal heart rate and rhythm complicating labor and delivery; O99.824 Streptococcus B carrier state complicating childbirth; Z3A.37 37 weeks gestation of pregnancy; Z37.0 Single live birth; Z67.10 Type A blood, Rh positive
CPT/HCPCS: 01961; 36415; 76942; 80053; 82803; 83615; 83735; 84550; 85025; 85027; 86850; 86900; 86901; A9270; J0690; J1650; J1885; J2274; J2405; J2540; J2590; J3475; J7121; Q0138